=== PATIENT | female | born 1990 | race Caucasian/White ===

== ENCOUNTER 2021-07-31 17:04 | Emergency (ER) | payer SELFPAY ==
[~2021-07-31] VITALS: Ht 154.9 cm; Wt 61.2 kg
[2021-07-31 17:20] VITALS: BP 149/77
--- NOTE | 2021-07-31 17:59 | NUR ---
31/F BIB SELF WITH C/O ABDOMINAL PAIN AND BACK PAIN X1 WEEK STATING PAIN IS WORSENING TODAY. DENIES N/V/D, URINARY SYMPTOMS, CP, SOB OR FEVERS. PT STATED PAIN IS NON-RADIATING AND CURRENTLY 8/. BOWEL SOUNDS ACTIVE AND ABDOMEN TENDER TO TOUCH. PT STATED "SHE HAS TO ROLL HER PANTS DOWN DUE TO THE LOWER ABDOMINAL PAIN." LAST BM WAS TODAY AND WAS NORMAL. MEDHX: DENIES ALLERGIES: DENIES
--- NOTE | 2021-07-31 19:26 | NUR ---
Pt report given to SRINIVASA CERVANTES. Transfer of care at this time.
--- NOTE | 2021-07-31 19:30 | NUR ---
RECIVED PATIENT ALERT AND ORIENTED X 4. PATIENT STATES CAME TO ER FOR C/O LOWER PELVIC PAIN RADIATING TO BACK X 1 WEEK. PER PATIENT STATES PAIN BECAME WORSE TODAY AND WANTED TO GET CHECKED OUT. PATIENT DENIES AND URINARY BURNING OR FREQUENCY. PELVIS TENDER UPON PALPATION. PATIENT DENIES ANY VAGINAL BLEEDING AT THIS TIME. PATIENT STATES CURRENT PELVIC PAIN 2/10 AND NO LONGER FEEL BACK PAIN AT THIS TIME. "IT JUST FEELS LIKE SMALL CRAMPING." MEDHX: DENIES ALLERGIES: DENIES
--- NOTE | 2021-07-31 20:18 | NUR ---
US AT BEDSIDE.
[2021-07-31 20:30] LABS: BASOPHILS % (AUTO) 0.4 % (0.0-2.0); EOSINOPHILS # (AUTO) 0.1 K/uL (0-0.4); HEMATOCRIT 32.8 % (36-48); HEMOGLOBIN 10.5 g/dL (12.0-16.0); LYMPHOCYTES # (AUTO) 1.8 K/uL (2.5-16.5); LYMPHOCYTES % (AUTO) 24.7 % (20.5-51.1); MEAN CORPUSCULAR HEMOGLOBIN 23 pg (27-31); MEAN CORPUSCULAR HGB CONC 32 g/dL (33-37); MEAN CORPUSCULAR VOLUME 69.9 fL (80-94); MONOCYTES # (AUTO) 0.4 K/uL (0.8-1.0); MONOCYTES % (AUTO) 6.1 % (1.7-9.3); NEUTROPHILS % (AUTO) 67.8 % (42.2-75.2); PLATELET COUNT (AUTO) 198 K/uL (140-450); RED BLOOD CELL COUNT(AUTO) 4.69 MIL/uL (4.20-5.40); RED CELL DISTRIBUTION WIDTH 19.5 % (11.6-13.7); WHITE BLOOD COUNT (AUTO) 7.3 K/uL (4.8-10.8)
[2021-07-31 20:47] LABS: ALBUMIN 3.5 g/dL (3.4-5.0); ANION GAP 14.4 (8-16); CARBON DIOXIDE 22.9 mmol/L (21-32); CREATININE 0.6 mg/dL (0.6-1.3); POTASSIUM 3.3 mmol/L (3.5-5.1); TOTAL BILIRUBIN 0.3 mg/dL (0.0-1.0)
[2021-07-31 21:04] LABS: APPEARANCE,URINE CLEAR (CLEAR); BILIRUBIN,URINE NEGATIVE (NEGATIVE); BLOOD, URINE NEGATIVE (NEGATIVE); COLOR,URINE YELLOW (YELLOW); LEUKOCYTE ESTERASE ,URINE NEGATIVE (NEGATIVE); NITRITE, URINE NEGATIVE (NEGATIVE); PH,URINE 5.5 (5.0-9.0); UGLUCOSE NEGATIVE (NEGATIVE)
[2021-07-31] MEDS ORDERED: ACET-2619 PO (22:15)
[2021-07-31 22:25] VITALS: BP 122/60
== END 2021-07-31 22:25 | disposition home or self-care (01) ==
LOC: MED 17:04
DX: O99.011 Anemia complicating pregnancy, first trimester (principal); O26.891 Other specified pregnancy related conditions, first trimester; E87.6 Hypokalemia; Z3A.01 Less than 8 weeks gestation of pregnancy
CPT/HCPCS: 36415; 76817; 80053; 81003; 81025; 83690; 84702; 85025; 87086; 99284; Q0092

== ENCOUNTER 2021-08-02 11:52 | Emergency (ER) | payer SELFPAY ==
[~2021-08-02] VITALS: Ht 154.9 cm; Wt 59.0 kg
[~2021-08-02 11:52] MED LIST: ACET-2619 PO
[2021-08-02 12:04] VITALS: BP 120/80
--- NOTE | 2021-08-02 14:07 | NUR ---
pt verbalizes dc instructions. no acute distress noted. stable on dc.
== END 2021-08-02 14:07 | disposition home or self-care (01) ==
LOC: MED 11:52
DX: O26.891 Other specified pregnancy related conditions, first trimester (principal); R10.9 Unspecified abdominal pain; Z79.899 Other long term (current) drug therapy
CPT/HCPCS: 36415; 84702; 99283

== ENCOUNTER 2021-08-07 10:53 | Emergency (ER) | payer SELFPAY ==
[~2021-08-07] VITALS: Ht 154.9 cm; Wt 60.1 kg
[2021-08-07 11:20] VITALS: BP 135/74
--- NOTE | 2021-08-07 11:27 | NUR ---
PT AMB TO BED 7
--- NOTE | 2021-08-07 12:02 | NUR ---
31/F [facility] SELF FOR FOLLOW UP. PATIENT STATES SHE IS AND WAS SEEN HERE ONE WEEK AGO TO HAVE BLOOD DRAWN TO CHECK HER HCG LEVELS. PATIENT STATES SHE WAS TOLD TO RETURN TO RECHECK HER LEVELS, STATING SHE HAS BEEN UNABLE TO GET IN WITH HER OB DOCTOR. PATIENT C/O INTERMITTENT LOW BACK PAIN AND LOWER ABDOMINAL CRAMPING BUT STATES NO PAIN AT THIS TIME. DENIES CP, SOB, FEVER, HEADACHE, N/V/D, OR URINARY SYMPTOMS. PATIENT IS A0.
--- NOTE | 2021-08-07 12:09 | NUR ---
LAB AT BEDSIDE
[2021-08-07 14:04] VITALS: BP 133/72
== END 2021-08-07 14:04 | disposition home or self-care (01) ==
LOC: MED 10:53
DX: O26.891 Other specified pregnancy related conditions, first trimester (principal); Z32.01 Encounter for pregnancy test, result positive; Z79.899 Other long term (current) drug therapy
CPT/HCPCS: 36415; 81002; 81025; 84702; 99283

== ENCOUNTER 2021-08-31 13:00 | Emergency (ER) | payer MEDICAID ==
[~2021-08-31] VITALS: Ht 154.9 cm; Wt 56.7 kg
[2021-08-31 13:05] VITALS: BP 112/69
[2021-08-31] MEDS ORDERED: ONDANSETRON 4 MG ODT PO ONE (13:15)
--- NOTE | 2021-08-31 13:16 | NUR ---
BIB SELF C/O VAGINAL SPOTING , NAUSEA , 3/10 PELVIC PAIN X TODAY. 7 WEEKS. .
[2021-08-31 13:39] LABS: BASOPHILS % (AUTO) 0.4 % (0.0-2.0); EOSINOPHILS # (AUTO) 0.1 K/uL (0-0.4); EOSINOPHILS % (AUTO) 1.3 % (0.0-4.0); HEMATOCRIT 40.8 % (36-48); HEMOGLOBIN 13.7 g/dL (12.0-16.0); LYMPHOCYTES # (AUTO) 1.7 K/uL (2.5-16.5); LYMPHOCYTES % (AUTO) 23.1 % (20.5-51.1); MEAN CORPUSCULAR HEMOGLOBIN 25 pg (27-31); MEAN CORPUSCULAR HGB CONC 34 g/dL (33-37); MEAN CORPUSCULAR VOLUME 75.4 fL (80-94); MONOCYTES # (AUTO) 0.4 K/uL (0.8-1.0); MONOCYTES % (AUTO) 5.9 % (1.7-9.3); NEUTROPHILS % (AUTO) 69.3 % (42.2-75.2); PLATELET COUNT (AUTO) 242 K/uL (140-450); RED BLOOD CELL COUNT(AUTO) 5.41 MIL/uL (4.20-5.40); RED CELL DISTRIBUTION WIDTH 24.2 % (11.6-13.7); WHITE BLOOD COUNT (AUTO) 7.2 K/uL (4.8-10.8)
[2021-08-31 13:40] LABS: APPEARANCE,URINE CLEAR (CLEAR); BILIRUBIN,URINE NEGATIVE (NEGATIVE); COLOR,URINE YELLOW (YELLOW); LEUKOCYTE ESTERASE ,URINE NEGATIVE (NEGATIVE); NITRITE, URINE NEGATIVE (NEGATIVE); UGLUCOSE NEGATIVE (NEGATIVE)
[2021-08-31 13:50] LABS: ANION GAP 14.9 (8-16); CREATININE 0.7 mg/dL (0.6-1.3); POTASSIUM 3.9 mmol/L (3.5-5.1)
[2021-08-31 13:52] LABS: BLOOD, URINE 1+ (NEGATIVE); RBC,URINE 0-5 /HPF (0-5); WBC,URINE 0-5 /HPF (0-5)
[2021-08-31] MEDS ORDERED: ACET-10509 PO (16:04)
[2021-08-31 16:28] VITALS: BP 112/69
== END 2021-08-31 16:28 | disposition home or self-care (01) ==
LOC: MED 13:00
DX: O20.0 Threatened abortion (principal); Z3A.01 Less than 8 weeks gestation of pregnancy; Z79.899 Other long term (current) drug therapy
CPT/HCPCS: 36415; 76817; 80048; 81001; 84702; 85025; 86900; 86901; 99284; Q0162